=== PATIENT | male | born 1945 | race Caucasian/White ===

== ENCOUNTER 2016-12-19 06:00 | Inpatient (IN) | payer OTHER ==
[~2016-12-19 06:00] MED LIST: ACETAMINOPHEN 325 MG TAB PO ONE; CHLORHEXIDINE GLUC HIBICLENS 118 ML BTL TP ONE; FAMOTIDINE 20 MG TAB PO ONE; ROPI/epiNEPH/KETOROLAC/morphINE JOINT COCKTAIL IU ONE
[2016-12-19] MEDS ORDERED: CEFAZOLIN 2 GM/DEXTROSE/100 ML BAG IV ONE (06:47)
[2016-12-19] MEDS ORDERED: PROMETHAZINE HCL 25 MG/ML INJ IVP PRN (06:50)
[2016-12-19] MEDS ORDERED: ONDANSETRON 4 MG/2 ML VIAL IVP PRN (06:50)
[2016-12-19] MEDS ORDERED: DIAZEPAM 5 MG TAB PO PRN (06:50)
[2016-12-19] MEDS ORDERED: DIPHENOXYLATE/ATROPINE LOMOTIL 1 TAB PO PRN (06:50)
[2016-12-19] MEDS ORDERED: TEMAZEPAM 15 MG CAP PO PRN (06:50)
[2016-12-19] MEDS ORDERED: ONDANSETRON DISINTEGRATING 4 MG TAB PO PRN (06:50)
[2016-12-19] MEDS ORDERED: MAGNESIUM HYDROXIDE 30 ML UDCUP PO PRN (06:50)
[2016-12-19] MEDS ORDERED: diphenhydrAMINE 25 MG CAP PO PRN (06:50)
[2016-12-19] MEDS ORDERED: METOCLOPRAMIDE 10 MG/2 ML VIAL IVP PRN (06:50)
[2016-12-19] MEDS ORDERED: BISACODYL 10 MG SUPP PR PRN (06:50)
[2016-12-19] MEDS ORDERED: LACTULOSE 20 GM/30 ML UDCUP PO PRN (06:50)
[2016-12-19] MEDS ORDERED: traMADol 50 MG TAB PO PRN (06:50)
[2016-12-19] MEDS ORDERED: POLYETHYLENE GLYCOL 3350 17 GM PKT PO PRN (06:50)
[2016-12-19] MEDS ORDERED: PHARMACY PAIN CONSULT 1 EA MISC PRN (06:50)
[2016-12-19] MEDS ORDERED: CYCLOBENZAPRINE 10 MG TAB PO PRN (06:50)
[2016-12-19] MEDS ORDERED: PROMETHAZINE HCL 25 MG SUPPR PR PRN (06:50)
[2016-12-19] MEDS ORDERED: VANCOMYCIN 1.25 GM in D5W 250 ML IV ONE (07:00)
[2016-12-19] MEDS ORDERED: LR 1,000 ML IV SCH (07:00)
[2016-12-19] MEDS ORDERED: PROPRANOLOL HCL 20 MG TAB PO PRN ×2 (07:08→14:42)
[2016-12-19] MEDS ORDERED: CALCIUM CHLORIDE 1 GM/10 ML INJ ONE (07:40)
[2016-12-19] MEDS ORDERED: THROMBIN (RECOMBINANT) 5,000 UNIT VIAL TP ONE (07:40)
[2016-12-19] MEDS ORDERED: ceFAZolin 1 GM/5 ML SYR ONE (07:41)
[2016-12-19] MEDS ORDERED: fentaNYL 100 MCG/2 ML INJ ONE ×2 (08:26→11:02)
[2016-12-19] MEDS ORDERED: PROPOFOL/EMULSION 500 MG/50 ML BOTTLE IV ONE (08:27)
[2016-12-19] MEDS ORDERED: LIDOCAINE 2% 5 ML SDV ONE (08:28)
[2016-12-19] MEDS ORDERED: LIOTHYRONINE SODIUM 5 MCG TAB PO SCH (09:00)
[2016-12-19] MEDS ORDERED: Herbals/Supplements -Info Only PO SCH (09:00)
[2016-12-19] MEDS ORDERED: BREXPIPRAZOLE 3 MG TAB PO SCH (09:00)
[2016-12-19] MEDS ORDERED: NON-FORMULARY NEW DRUG (Dexlansoprazole [Dexilant] 60 MG) PO SCH (09:00)
[2016-12-19] MEDS ORDERED: KETAMINE 100 MG/10 ML SYR IVP ONE (09:21)
[2016-12-19] MEDS ORDERED: epHEDrine SULFATE 10 MG/ML SYR ONE (10:31)
[2016-12-19] MEDS ORDERED: ONDANSETRON 4 MG/2 ML VIAL ONE (10:31)
[2016-12-19] MEDS ORDERED: DEXAMETHASONE 4 MG/ML VIAL ONE (10:32)
[2016-12-19] MEDS: VANCOMYCIN HCL/NORMAL SALINE 250 ML IV SCH ×2 (12:25→18:34)
[2016-12-19] MEDS: ACETAMINOPHEN 325 MG TAB PO SCH ×3 (12:57→23:36)
[2016-12-19] MEDS: oxyCODONE IR 5 MG TAB PO PRN ×3 (12:57→20:38)
[2016-12-19] MEDS: ARMODAFINIL 250 MG PO SCH (13:01)
[2016-12-19] MEDS: FLUTICASONE NASAL 120 SPRAYS/16 GM MDI EACHNARE SCH (13:02)
[2016-12-19] MEDS: CHOLECALCIFEROL VIT D3 1,000 UNITS TAB PO SCH (13:02)
[2016-12-19] MEDS: CYANO/VITAMIN B12 1000 MCG TAB PO SCH (13:03)
[2016-12-19] MEDS: MULTIVITAMINS 1 EACH TAB PO SCH (13:04)
[2016-12-19] MEDS: SENNOSIDES/DOCUSATE SODIUM TAB PO SCH ×2 (13:04→20:38)
[2016-12-19] MEDS: OMEGA-3 FATTY ACIDS 1,000 MG CAP PO SCH (13:04)
[2016-12-19] MEDS: LIOTHYRONINE SODIUM 5 MCG TAB PO SCH (14:50)
[2016-12-19 19:26] VITALS: RESP 16
[2016-12-19] MEDS: FAMOTIDINE 20 MG TAB PO SCH (20:37)
[2016-12-19] MEDS: ASPIRIN 325 MG TAB PO SCH (20:37)
[2016-12-19] MEDS ORDERED: MELATONIN 3 MG TAB PO SCH (21:00)
[2016-12-19] MEDS ORDERED: OLANZapine 5 MG TAB PO SCH (21:00)
[2016-12-20] MEDS: ACETAMINOPHEN 325 MG TAB PO SCH (05:48)
[2016-12-20] MEDS ORDERED: DEXILANT 60 MG PO SCH (06:00)
[2016-12-20] MEDS ORDERED: LEVOTHYROXINE 150 MCG TAB PO SCH (06:00)
[2016-12-20 06:29] LABS: HEMATOCRIT 35.5 % (40.0-51.0); HEMOGLOBIN 12.4 g/dL (13.7-17.5)
--- NOTE | 2016-12-20 07:19 | PDIAF ---
- Diagnosis Diagnosis: right knee djd Code Status: Full Code - Medication Management Discharge Medications: Medications to Continue on Transfer Armodafinil [Nuvigil 250mg] 250 mg PO DAILY 11/23/16 [Last Taken 12/18/16] Aspirin [Aspirin 81mg (*)] 81 mg PO DAILY 11/23/16 [Last Taken 12/11/16] Brexpiprazole [Rexulti 3 MG (*)] 3 mg PO DAILY 11/23/16 [Last Taken Unknown] Cholecalciferol Vit D3 [Vitamin D3 (*)] 3,000 units PO DAILY 11/23/16 [Last Taken 11/30/16] Cyanocobalamin [Vitamin B12 (*)] 2,500 mcg PO DAILY 11/23/16 [Last Taken ] Dexlansoprazole [Dexilant] 60 mg PO DAILY 11/23/16 [Last Taken 12/18/16] Fluticasone Nasal [Flonase Nasal [place]] 1 sprays EACHNARE DAILY 11/23/16 [Last Taken 12/18/16] Herbals/Supplements -Info Only 1 ea PO DAILY 11/23/16 [Last Taken 11/30/16] Levothyroxine [Synthroid 150 mcg (*)] 150 mcg PO DAILY06 11/23/16 [Last Taken ] Liothyronine Sodium [Cytomel 5 mcg (*)] 5 mcg PO BID 11/23/16 [Last Taken ] Melatonin [Melatonin 3 MG (*)] 3 mg PO HS 11/23/16 [Last Taken 12/18/16] Multivitamins [Multivitamin (*)] 1 each PO DAILY 11/23/16 [Last Taken 11/30/16] [place]-3 Fatty Acids [Fish Oil 1000 mg (*)] 3,000 mg PO DAILY 11/23/16 [Last Taken 11/30/16] Propranolol HCl [Inderal 20mg (*)] 20 mg PO DAILY PRN 11/23/16 [Last Taken 12/18] Aspirin [Aspirin 325 mg (*)] 325 mg PO DAILY #0 tab 12/20/16 [Last Taken Unknown ] Diazepam [Valium 5 MG (*)] 5 mg PO Q6HRS PRN #30 tab 12/20/16 [Last Taken Unknown] oxyCODONE IR [Oxycodone Ir (*)] 5 - 10 mg PO Q3HRS PRN #90 tab 12/20/16 [Last Taken Unknown] Discharge Medications: Refer to the Discharge Home Medication list for PRN reason. - Orders Services needed: Physical Therapy Diet Recommendation: no restrictions on diet Diet Texture: Regular Texture Diet Activity/Weight Bearing Restrictions: wbat. rom as tolerated. DAILY DRESSING CHANGES. no soaking or immersion. may shower without bandage. f/u at two weeks. seek attn for increasing pain, redness, drainage, or other focal complaint - Follow Up Care Current Providers and Referrals: CARITO MANRIQUE [Primary Care Provider] -
[2016-12-20 07:53] VITALS: BP 116/65; PULSE 73; TEMP 97.8; O2SAT 94
--- NOTE | 2016-12-20 08:02 | GDS ---
ADMISSION DIAGNOSIS: Right knee degenerative joint disease. DISCHARGE DIAGNOSIS: Right knee degenerative joint disease. PROCEDURE: Right total knee arthroplasty. HISTORY OF PRESENT ILLNESS: The patient is a 71-year-old gentleman with end- stage arthritis to his right knee. Clinical and radiographic features are consistent with this. He has failed all attempts at conservative management. I have recommended surgical intervention with total knee replacement. HOSPITAL COURSE: The patient was admitted overnight for postoperative management. He tolerated the procedure well. Postop course was uneventful. At the time of discharge, he is tolerating an oral diet. His pain is well controlled on oral medicines. He is voiding without difficulty. His dressing is clean, dry, and intact. He has no calf swelling. Negative Homans bilaterally. X-rays are stable with no fracture or lucency. He has been cleared by Physical Therapy. DISCHARGE ACTIVITY: Weightbearing as tolerated. Range of motion as tolerated. Daily dressing changes. No soaking or immersion. May shower without the bandage and/or dressing. VANE hose for 2 weeks. Follow up at 2 weeks. Seek attention for increasing redness, swelling, drainage. DISCHARGE MEDICATIONS: Oxycodone 5 mg 1-2 every 6 hours p.r.n. pain, Valium 5 mg, 1 p.o. q.6 hours p.r.n., spasm and aspirin 325 mg p.o. daily. /[id number]/MODL MTDD
[2016-12-20] MEDS: CHOLECALCIFEROL VIT D3 1,000 UNITS TAB PO SCH (08:27)
[2016-12-20] MEDS: ASPIRIN 325 MG TAB PO SCH (08:27)
[2016-12-20] MEDS: CYANO/VITAMIN B12 1000 MCG TAB PO SCH (08:28)
[2016-12-20] MEDS: OMEGA-3 FATTY ACIDS 1,000 MG CAP PO SCH (08:28)
[2016-12-20] MEDS: LIOTHYRONINE SODIUM 5 MCG TAB PO SCH (08:28)
[2016-12-20] MEDS: FAMOTIDINE 20 MG TAB PO SCH (08:28)
[2016-12-20] MEDS: oxyCODONE IR 5 MG TAB PO PRN (08:29)
[2016-12-20] MEDS: MULTIVITAMINS 1 EACH TAB PO SCH (08:29)
[2016-12-20] MEDS: SENNOSIDES/DOCUSATE SODIUM TAB PO SCH (08:29)
[2016-12-20] MEDS: ARMODAFINIL 250 MG PO SCH (08:40)
[2016-12-20] MEDS ORDERED: PANTOPRAZOLE SODIUM 40 MG TAB PO SCH (09:00)
[2016-12-20] MEDS: FLUTICASONE NASAL 120 SPRAYS/16 GM MDI EACHNARE SCH (09:39)
== END 2016-12-20 12:07 | disposition home health service (06) | DRG 470 ==
LOC: F3N 06:00
PROVIDERS: ADMIT Orthopaedic Surgery; ATTEND Orthopaedic Surgery
PROC: 0SRC0JZ Replacement of Right Knee Joint with Synthetic Substitute, Open Approach (ICD-10-PCS; principal; 2016-12-19 08:54)
DX: M17.11 Unilateral primary osteoarthritis, right knee (principal); E03.9 Hypothyroidism, unspecified; K21.9 Gastro-esophageal reflux disease without esophagitis; F31.9 Bipolar disorder, unspecified
CPT/HCPCS: 97110-GP; 97116-GP; 97161-GP; 97165-GO; 97530-GP; C1713; G8978-GP-CJ; G8979-GP-CI; G8987-GO-CI; G8988-GO-CI; G8989-GO-CI; J0171; J0690; J1100; J1885; J2405; J2704; J2795; J3010; J3370

== ENCOUNTER → 2017-01-30 | Outpatient (CLI) | payer OTHER | LOC: BMCIMAGING 09:59 | PROVIDERS: ATTEND Physician Assistant | DX: Z09 Encounter for follow-up examination after completed treatment for conditions other than malignant neoplasm (principal); Z96.651 Presence of right artificial knee joint ==

== ENCOUNTER → 2017-03-15 | Outpatient (CLI) | payer OTHER | LOC: BMCIMAGING 10:32 | PROVIDERS: ATTEND Orthopaedic Surgery | DX: Z47.1 Aftercare following joint replacement surgery (principal); Z96.651 Presence of right artificial knee joint ==

== ENCOUNTER → 2017-06-08 | Outpatient (CLI) | payer OTHER | LOC: BMCIMAGING 08:53 | PROVIDERS: ATTEND Orthopaedic Surgery | DX: Z47.1 Aftercare following joint replacement surgery (principal); Z96.651 Presence of right artificial knee joint ==

== ENCOUNTER → 2017-12-27 | Outpatient (CLI) | payer OTHER | LOC: BMCIMAGING 09:40 | PROVIDERS: ATTEND Orthopaedic Surgery | DX: Z47.1 Aftercare following joint replacement surgery (principal); Z96.651 Presence of right artificial knee joint ==

== ENCOUNTER → 2018-12-12 | Outpatient (CLI) | payer OTHER | LOC: FIMAGING 09:50 | PROVIDERS: ATTEND Family Medicine | DX: I65.23 Occlusion and stenosis of bilateral carotid arteries (principal) ==

== ENCOUNTER 2019-01-03 14:00 | Observation (INO) | payer OTHER ==
[2019-01-03] MEDS ORDERED: ASPIRIN EC 325 MG TAB PO ONE (14:21)
[2019-01-03] MEDS ORDERED: NS 1,000 ML IV ONE (14:21)
[2019-01-03] MEDS ORDERED: diphenhydrAMINE 25 MG CAP PO ONE (14:21)
[2019-01-03] MEDS ORDERED: FAMOTIDINE 20 MG TAB PO ONE (14:21)
[2019-01-03] MEDS ORDERED: DIAZEPAM 5 MG TAB PO ONE (14:21)
[2019-01-03 14:40] LABS: PLATELET COUNT 201 10^3/uL (150-400)
[2019-01-03] MEDS ORDERED: fentaNYL 100 MCG/2 ML INJ ONE ×2 (14:51→16:01)
[2019-01-03] MEDS ORDERED: VERAPAMIL 5 MG/2 ML VIAL ONE (14:51)
[2019-01-03] MEDS ORDERED: LIDOCAINE 1% 300 MG/30 ML SDV ONE (14:51)
[2019-01-03] MEDS ORDERED: MIDAZOLAM 2 MG/2 ML VIAL ONE ×3 (14:51→16:21)
[2019-01-03] MEDS ORDERED: HEPARIN 10,000 UNIT/10 ML MDV (1,000 UNIT/ML) ONE (14:52)
[2019-01-03] MEDS ORDERED: IOPAMIDOL (ISOVUE-370) 150 ML BTL IV ONE (14:52)
[2019-01-03 14:53] LABS: INR 1.14 (0.83-1.16); PROTIME(PATIENT) 14.1 SEC (12.0-15.0)
[2019-01-03] MEDS ORDERED: CLOPIDOGREL BISULFATE 75 MG TAB ONE (16:26)
[2019-01-03] MEDS ORDERED: CLOPIDOGREL BISULFATE 75 MG TAB PO ONE (16:44)
[2019-01-03] MEDS ORDERED: LORazepam 2 MG/ML INJ IVP PRN (16:44)
[2019-01-03] MEDS ORDERED: ATROPINE SULFATE 1 MG/10 ML SYR IVP PRN (16:44)
[2019-01-03] MEDS ORDERED: NITROGLYCERIN 0.4 MG BTL SL PRN (16:44)
[2019-01-03] MEDS ORDERED: ONDANSETRON 4 MG/2 ML VIAL IVP PRN (16:44)
[2019-01-03] MEDS ORDERED: TEMAZEPAM 15 MG CAP PO PRN (16:44)
[2019-01-03] MEDS ORDERED: OXYCODONE/APAP 5/325 TAB PO PRN (16:44)
[2019-01-03] MEDS ORDERED: HYDROCODONE/APAP 5/325 TAB PO PRN (16:44)
[2019-01-03] MEDS ORDERED: NS 1,000 ML IV SCH (16:45)
[2019-01-03] MEDS ORDERED: clonazePAM 0.5 MG TAB PO PRN (16:47)
[2019-01-03] MEDS ORDERED: CARBOXYMETHYLCELLULOSE 1% 0.4 ML DROPERETTE EACHEYE PRN (16:47)
--- NOTE | 2019-01-03 16:49 | PDPROPOC ---
Sedation Plan of Care Sedation Plan of Care: vital signs stable, mental status noted, patient educated of risks, benefits, alternatives, patient can tolerate sedation ASA Classification: ASA 3 Planned drugs: fentanyl, midazolam Mallampati Score: Class 2 Mallampati Reference Image: Patient passed 3-3-2 rule?: Yes
--- NOTE | 2019-01-03 16:50 | PDHPUP ---
History & Physical Update H&P update statement: This history and physical update is based on an assessment of the patient which was completed after admission or registration (within 24 hours), but prior to the surgery/procedure. H&P update: H&P reviewed & patient examined, no change in patient's condition since H&P completed
--- NOTE | 2019-01-03 18:17 | CPIP ---
[f rep st] INVASIVE CARDIAC PROCEDURE DATE OF PROCEDURE: 01/03/2019 PROCEDURES PERFORMED: 1. Selective coronary angiography. 2. Left heart catheterization. 3. Left ventriculogram. 4. Percutaneous transluminal coronary angioplasty and stent placement of the left anterior descendin g with the use of a 2.5 x 16 Synergy drug-eluting stent. 5. TR band arteriotomy repair. This was a right radial approach. COMPLICATIONS: None. INDICATION FOR THE PROCEDURE: Unstable angina as evidence while the patient was on a treadmill. Adelina hamm was recently noted to have high level coronary calcium score of 1400, placing him in greater renzo n the 90th percentile rank for his age in regard to degree of coronary calcification, who was undergo ing a routine stress test and developed dramatic EKG changes with ST elevation in AVR, ST depression in multiple of the inferior lateral leads suggestive of myocardial ischemia and developed non exercis e-limiting angina. The procedure was discontinued. Dr. Allen was consulted, and she felt it was impo rtant that we proceed with an urgent cardiac catheterization. PROCEDURE IN DETAIL: After informed consent was obtained, n.p.o. status was confirmed, the region th e right wrist was cleaned, prepped, and draped in sterile fashion. Approximately 3 cc of 1% lidocain e was utilized for local anesthesia. Modified Seldinger technique was used to place a 5-Persian sheat h to the right radial artery after a plethysmography trace assisted Humble test performed, documenting dual arterial supply to the right hand. The patient then underwent the previously-mentioned diagnostic procedure with use of JL4 and L4 coron lisa catheters as well as a 5-Persian pigtail catheter. Standard wire exchange technique was utilized for all catheter exchanges. The right coronary artery is dominant, giving rise to the posterior descending as well as the 2 poste rolateral ventricular branches. There are luminal irregularities, consistent with underlying atheros clerosis. Maximal luminal stenosis is in the ostium of the PDA takeoff from the [place] right coronar y at 50% stenosis and a 70% lesion in the mid PDA but somewhat distal in the coronary circulation. N o other flow-limiting obstruction on the right side was identified. The left main coronary lumen is approximately 8 mm in size and has 30% stenosis near its takeoff from the left main coronary cusp. It bifurcates into an LAD and circumflex system. The circumflex vesse l immediately gives rise to an important 3 mm obtuse marginal branch, which is free of flow-limiting disease. The ramus vessel is very small and exits the AV groove posteriorly almost immediately, givi ng rise to a left atrial branch. It is less than 2 mm in size. The LAD arises in its usual location , giving rise to an immediate diagonal branch, which is a functional ramus vessel. It is approximate ly 2.5 mm in size and has luminal irregularity within the ostial takeoff of the diagonal and its beta branch, which is consistent with underlying atherosclerosis. Maximal luminal stenosis approximately 30%. The LAD thereafter courses the anterior apex with a flow-limiting obstruction in its proximal segment. This was evaluated with quantitative coronary analysis, documenting an 84% stenosis by QCA evaluation. The patient then underwent left ventriculogram in the CONTRERAS projection, demonstrating pres erved left ventricular systolic function, ejection fraction 65%. No resting segmental wall motion ab normalities or evidence of mitral regurgitation was noted. 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 The aorta is not alfonso kly aneurysmal, and there is no evidence of dissection. We turned our attention to the lesion in question in the proximal LAD. A 5-Persian left radial backup catheter was used for guide catheter support. A 0.014 Intuition wire was advanced across the lesion in question under direct fluoroscopic and angiographic guidance. A 2.5 x 16 Synergy drug-eluting st ent was then placed at the site of the blockage, and the patient underwent primary stenting at a maxi mum pressure of 14 atmospheres with 2 serial inflations. Post stent implantation angiography documen lilian 0% to 5% residual stenosis status post PTCA and stent placement. There was a lesion in the mid L AD downstream from the stented segment, which was estimated to be approximately 50% stenosed. Howeve r, the distal caliber of the blood vessel is quite small, and, therefore, this lesion is not likely t o be flow limiting and was, therefore, left alone. FINAL IMPRESSION: Successful angioplasty and stent implantation for indication of abnormal stress te st with high-risk features including dramatic ST segment changes with exercise as well as non limitin g angina consistent with [place] [employer] class II symptoms of angina but new onset, m aking it unstable. The patient will need to be on dual antiplatelet therapy with aspirin and Plavix, to complete 1 year of therapy. The patient already has a followup appointment scheduled. He will b e admitted overnight to watch his rhythm in the hospital, and if he is stable in the morning, should be able to be discharged home with exercise precautions and restriction for the first 7-10 days follo wing stent implantation. /[id number]/MODL
[2019-01-03] MEDS: TAMSULOSIN HCL 0.4 MG CAP PO SCH (20:54)
[2019-01-03] MEDS ORDERED: MELATONIN 3 MG TAB PO SCH (21:00)
[2019-01-03] MEDS ORDERED: lamoTRIgine 25 MG TAB PO SCH (21:00)
[2019-01-03] MEDS ORDERED: ATORVASTATIN CALCIUM 40 MG TAB PO SCH (21:00)
[2019-01-04 04:32] LABS: PLATELET COUNT 174 10^3/uL (150-400)
[2019-01-04] MEDS ORDERED: LEVOTHYROXINE 175 MCG TAB PO SCH (06:00)
[2019-01-04 07:38] VITALS: BP 128/74
[2019-01-04] MEDS: TAMSULOSIN HCL 0.4 MG CAP PO SCH (08:58)
[2019-01-04] MEDS ORDERED: OMEGA-3 FATTY ACIDS 1,000 MG CAP PO SCH (09:00)
[2019-01-04] MEDS ORDERED: ASPIRIN EC 325 MG TAB PO SCH (09:00)
[2019-01-04] MEDS ORDERED: PANTOPRAZOLE SODIUM 40 MG TAB PO SCH (09:00)
[2019-01-04] MEDS ORDERED: GABAPENTIN 100 MG CAP PO SCH (09:00)
[2019-01-04] MEDS ORDERED: ASENAPINE MALEATE 5 MG SUBLINGUAL TAB SL SCH (09:00)
[2019-01-04] MEDS ORDERED: LIOTHYRONINE SODIUM 5 MCG TAB PO SCH (09:00)
[2019-01-04] MEDS ORDERED: CHOLECALCIFEROL VIT D3 1,000 UNITS TAB PO SCH (09:00)
[2019-01-04] MEDS ORDERED: CYANO/VITAMIN B12 1000 MCG TAB PO SCH (09:00)
[2019-01-04] MEDS ORDERED: CLOPIDOGREL BISULFATE 75 MG TAB PO SCH (09:00)
--- NOTE | 2019-01-04 10:54 | GDS ---
[f rep st] DISCHARGE SUMMARY DISCHARGE DIAGNOSES: 1. Coronary artery disease with: a. 84% stenosis within the left anterior descending, status post stenting with a 2.5 x 16 mm Synergy drug-eluting stent. b. 70% stenosis to the posterior descending artery, which was not intervened upon. 2. Hyperlipidemia. HOSPITAL COURSE: For detailed H and P, please see prior dictation. Briefly, the patient has a histo ry of coronary artery disease on the basis of a positive calcium score of 1400, which placed him in t he 98 percentile for age in regard to degree of coronary calcification. A routine exercise treadmill test was ordered and abnormal. He developed ST elevation in aVR and ST depression in the inferior l nallely suggestive of myocardial ischemia. The patient was seen by Dr. Allen at the time of his stress test and recommended an urgent angiogram. He was taken to the cardiac catheterization laboratory by Dr. Pio Dc on January 03, 2019. The r ight coronary artery had a had luminal irregularities. The posterior descending artery had a 50% reilly nosis, and a 70% lesion in the mid PDA, which was not intervened upon. The left main had a 30% steno sis. The left circumflex artery was free of significant disease. The left anterior descending arter y had a proximal stenosis of 84%, which was stented with a 2.5 x 16 mm Synergy drug-eluting stent. D [place] within the mid LAD, there was another 50% stenosis, which was not intervened upon. The following morning, the patient denied any chest discomfort or shortness of breath. He was monito red on telemetry and remained in normal sinus rhythm. His EKG the day of discharge showed normal sin us rhythm without any ST-T wave changes to suggest ischemia. LABORATORY: BMP within normal limits. Triglyceride 88, total cholesterol 120, LDL 62, HDL 40, trigl ycerides 88. PHYSICAL EXAMINATION: GENERAL: Patient appears in no acute distress. VITAL SIGNS: Blood pressure 128/74, heart rate 78, oxygen saturation 92% on room air, afebrile. LUNGS: Clear to auscultation. No wheezes, rhonchi, or crackles auscultated. CARDIAC: Regular rate and rhythm, without any murmurs , rubs, or gallops appreciated. EXTREMITIES: Right wrist where access was obtained for the angiogra m is clean, intact, without any evidence of infection or hematoma. MEDICATIONS: Nuvigil was discontinued and he was started on Plavix 75 mg daily and aspirin 325 mg da anni. Remaining of his medications are the same. He will continue vitamin B12 1000 mcg daily, herbal supplement daily, vitamin D 3000 units daily, fish oil 1000 mg daily, melatonin 3 mg at bedtime, Cyt omel 5 mcg daily, Dexilant 60 mg daily, Lamictal 37.5 mg at bedtime, Klonopin 0.5 mg p.r.n. for anxie ty, Neurontin 200 mg daily, Flomax 0.4 mg b.i.d., Lipitor 40 mg at bedtime, Saphris 5 mg sublingual d aily, Synthroid 175 mcg daily, Refresh eye drops daily. PLAN: The patient is currently stable and ready for discharge home. He has been given wrist precaut ions. He is aware that he is to remain on aspirin and Plavix for a minimum of 1 year. He will follo w up with Dr. Hameed on January 07 at 9:45 in our [place] office. Greater Than 30 minutes was spent coordinating the patient's care today. /[id number]/MODL
--- NOTE | 2019-01-04 12:30 | ASDISCHSUM ---
Discharge Information Plan Status:Home with No Needs Medically Cleared to Leave:01/04/2019 Discharge Date:01/04/2019 12:07 PM CM D/C Disposition:Home, Routine, Self-Care ADT D/C Disposition:Home, Routine, Self-Care Projected Discharge Date:01/04/2019 12:07 PM Transportation at D/C: Discharge Delay Reason: Follow-Up Date:01/04/2019 12:07 PM Discharge Slot: Final Diagnosis: Placement Information Patient Contact Information Contact Name:COLETTE Relationship: Address:[address] Work Phone: City:[place] Alternate Phone: [facility]/Zip Code:[place] [address] Email: Financial Information Financial Class:Medicare Advantage Plans Primary Plan Desc:[employer] MEDICARE ADV Primary Plan Number:[id number] Secondary Plan Desc: Secondary Plan Number: Assessment Information LACE LACE Length of stay for Answers: Less than 1 day current admission Acuity / Level of Answers: No Care: Did the patient have an inpatient admission? Comorbidities - select Answers: Coronary Artery Disease all that apply Other Notes: hyperlipidemia, # of Emergency department Answers: 0 visits in the last 6 months Score: 3 Date Signed: 01/04/2019 12:29 PM Electronically Signed By:Ingrid Mcbride RN Intervention Information
--- NOTE | 2019-01-04 14:35 | CPEKG ---
Test Reason : OPEN Blood Pressure : / mmHG Vent. Rate : 073 BPM Atrial Rate : 073 BPM P-R Int : 187 ms QRS Dur : 087 ms QT Int : 381 ms P-R-T Axes : 032 -07 -26 degrees QTc Int : 420 ms Sinus rhythm Consider left ventricular hypertrophy Inferior infarct, age indeterminate Confirmed by Pio Dc ([id number]) on 01/04/2019 2:34:46 PM Referred By: Pio Dc Confirmed By:Pio Dc
--- NOTE | 2019-01-04 14:36 | CPEKG ---
Test Reason : OPEN Blood Pressure : / mmHG Vent. Rate : 059 BPM Atrial Rate : 060 BPM P-R Int : 215 ms QRS Dur : 090 ms QT Int : 416 ms P-R-T Axes : 011 061 101 degrees QTc Int : 413 ms Sinus rhythm Borderline prolonged [place] interval Nonspecific T abnormalities, lateral leads Confirmed by Poi Dc ([id number]) on 01/04/2019 2:35:41 PM Referred By: Pio Dc Confirmed By:Pio Dc
--- NOTE | 2019-01-04 14:36 | CPEKG ---
Test Reason : OPEN Blood Pressure : / mmHG Vent. Rate : 064 BPM Atrial Rate : 064 BPM P-R Int : 193 ms QRS Dur : 087 ms QT Int : 402 ms P-R-T Axes : 058 084 097 degrees QTc Int : 415 ms Sinus rhythm Borderline right axis deviation Nonspecific T abnormalities, lateral leads Confirmed by Pio Dc ([id number]) on 01/04/2019 2:35:54 PM Referred By: Pio Dc Confirmed By:Pio Dc
== END 2019-01-04 12:07 | disposition home or self-care (01) ==
LOC: FCATH 14:00 → F2W 16:25
PROVIDERS: ADMIT Internal Medicine Cardiovascular Disease; ATTEND Internal Medicine Cardiovascular Disease
PROC: 027034Z Dilation of Coronary Artery, One Artery with Drug-eluting Intraluminal Device, Percutaneous Approach (ICD-10-PCS; principal; 2019-01-03)
PROC: B2111ZZ Fluoroscopy of Multiple Coronary Arteries using Low Osmolar Contrast (ICD-10-PCS; principal; 2019-01-03)
PROC: B2151ZZ Fluoroscopy of Left Heart using Low Osmolar Contrast (ICD-10-PCS; principal; 2019-01-03)
PROC: 4A023N7 Measurement of Cardiac Sampling and Pressure, Left Heart, Percutaneous Approach (ICD-10-PCS; principal; 2019-01-03)
DX: I25.110 Atherosclerotic heart disease of native coronary artery with unstable angina pectoris (principal); E78.5 Hyperlipidemia, unspecified; G47.33 Obstructive sleep apnea (adult) (pediatric)
CPT/HCPCS: 93005; 93458; C1769; C1874; C1887; C9600; G0378; J1644; J2250; J3010; Q9967